=== PATIENT | male | born 1990 | race Caucasian/White ===

== ENCOUNTER → 2019-01-30 | Outpatient (CLI) | payer OTHER ==
[~2019-01-30] MED LIST: PROHANCE 279.3MG/ML 15ML VIAL (A9576) As Ordered ONE
--- NOTE | 2019-01-30 11:55 | REP ---
MRI brain without and with IV contrast: History: Migraine without aura. . Comparison study: No comparison imaging. Technique: Axial and sagittal imaging planes are utilized for T1 and T2-weighted scans. Sequences include spin-echo, fast spin echo, FLAIR, and diffusion weighted sequences. Gadolinium enhancement dose is 11 ml of intravenous ProHance. MRI findings: No bony calvarial lesion is seen. Craniocervical junction and upper cervical cord are normal in appearance. There is no MR evidence of significant paranasal sinus disease. No intraorbital abnormality is seen. The lateral, third, and fourth ventricles are normal in size and position. Adams-white differentiation pattern is intact above and below the tentorium. There is no evidence of intracranial hemorrhage. No mass, infarction, extra-axial fluid collection or midline shift is seen. No abnormal white matter lesion is seen. Postcontrast enhanced images show no abnormal intracranial contrast enhancement. Impression: Negative brain MRI study. Electronically Signed by Kostas Appiah MD 01/30/2019 11:46 A
== END ==
LOC: M RAD 10:17
PROVIDERS: ATTEND Physician Assistant
DX: G43.009 Migraine without aura, not intractable, without status migrainosus (principal)
CPT/HCPCS: 70553; A9576

== ENCOUNTER 2019-03-03 19:00 | Emergency (ER) | payer OTHER ==
[~2019-03-03] VITALS: Ht 172.7 cm; Wt 59.5 kg
[2019-03-03 19:01] VITALS: BP 133/78
[2019-03-03] MEDS ORDERED: HYDR50TA70 (19:07)
[2019-03-03] MEDS ORDERED: FLUO20CA19 (19:07)
== END 2019-03-03 20:19 | disposition home or self-care (01) ==
LOC: M ED 19:00
DX: J02.9 Acute pharyngitis, unspecified (principal); F41.9 Anxiety disorder, unspecified; Z90.89 Acquired absence of other organs; F17.210 Nicotine dependence, cigarettes, uncomplicated; Z88.1 Allergy status to other antibiotic agents; Z79.899 Other long term (current) drug therapy

== ENCOUNTER 2019-09-27 21:36 | Emergency (ER) | payer OTHER ==
[~2019-09-27] VITALS: Ht 172.7 cm; Wt 57.3 kg
[~2019-09-27 21:36] MED LIST changes: +FLUO20CA22; +HYDR50TA70; -PROHANCE 279.3MG/ML 15ML VIAL (A9576) As Ordered ONE
[2019-09-27] MEDS ORDERED: NS 1,000 ML IV ONE (22:00)
[2019-09-27] MEDS ORDERED: ISOVUE-370 76% 100ML VIAL As Ordered ONE (22:11)
[2019-09-27 22:13] LABS: BASO # 0.1 10^3/uL (0.0-0.2); BASO % 0.8 % (0.0-1.0); EOS # 0.2 10^3/uL (0.0-0.5); EOS % 2.3 % (0.0-3.0); HEMOGLOBIN 15.5 g/dl (13.5-17.5); LYMPH # 2.1 10^3/uL (1.5-5.0); LYMPH % 27.1 % (24.0-44.0); MEAN CORPUSCULAR HEMOGLOBIN 28.3 pg (27.0-33.0); MEAN CORPUSCULAR HGB CONC 33.7 g/dl (32.0-36.5); MEAN CORPUSCULAR VOLUME 83.9 fl (80.0-96.0); MONO # 0.4 10^3/uL (0.0-0.8); PLATELET COUNT, AUTOMATED 192 10^3/uL (150-450); RED BLOOD COUNT 5.48 10^6/uL (4.30-6.10); WHITE BLOOD COUNT 7.8 10^3/uL (4.0-10.0)
[2019-09-27 22:23] LABS: INR 1.13; PROTHROMBIN TIME 14.2 SECONDS (11.8-14.0)
[2019-09-27 22:24] LABS: PARTIAL THROMBOPLASTIN TIME 29.9 SECONDS (25.0-38.4)
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
[2019-09-27 22:47] LABS: ALBUMIN 4.8 GM/DL (3.2-5.2); ALT/SGPT 38 U/L (12-78); AMYLASE 43 U/L (25-115); BILIRUBIN,DIRECT 0.2 MG/DL (0.0-0.2); BILIRUBIN,TOTAL 0.7 MG/DL (0.2-1.0); CK-MB VALUE MASS 2.1 NG/ML (<3.6); CPK CREATINE PHOSPHOKINASE 217 U/L (39-308); ETHYL ALCOHOL (ETHANOL) 0.047 % (0.000-0.010); LIPASE 95 U/L (73-393); MB/CK RELATIVE INDEX 0.97 (< OR =4); TOTAL PROTEIN 7.8 GM/DL (6.4-8.2); TROPONIN I < 0.02 NG/ML (< 0.10)
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
[2019-09-27] MEDS ORDERED: POLYSPORIN TOPICAL OINTMENT 15GM TOP ONE (23:15)
[2019-09-27 23:45] VITALS: BP 127/75
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
== END 2019-09-28 00:01 | disposition home or self-care (01) ==
LOC: M ED 21:36 → EDBD 21:36 → M ED 09-28 00:01
DX: S09.90XA Unspecified injury of head, initial encounter (principal); S30.0XXA Contusion of lower back and pelvis, initial encounter; T14.8XXA Other injury of unspecified body region, initial encounter; F10.10 Alcohol abuse, uncomplicated; V03.12XA Pedestrian on skateboard injured in collision with car, pick-up truck or van in traffic accident, initial encounter; Y92.410 Unspecified street and highway as the place of occurrence of the external cause; Z88.1 Allergy status to other antibiotic agents; Z79.899 Other long term (current) drug therapy
CPT/HCPCS: 70450; 71045; 71260; 72125; 72170; 73090; 73130; 73552; 74177; 80047; 80076; 82150; 82550; 82553; 83605; 83690; 85025; 85610; 85730; 86850; 86900; 86901; 93041; 94760; 96360; 99285; G0480; Q9967

== ENCOUNTER 2022-11-09 09:35 | Emergency (ER) | payer OTHER ==
[~2022-11-09] VITALS: Ht 175.3 cm; Wt 59.8 kg
[2022-11-09 09:36] VITALS: BP 114/73; TEMP 98.3; O2SAT 99
== END 2022-11-09 10:34 | disposition left against medical advice (07) ==
LOC: M ED 09:35
DX: Z53.21 Procedure and treatment not carried out due to patient leaving prior to being seen by health care provider (principal)

== ENCOUNTER 2023-01-02 18:07 | Emergency (ER) | payer OTHER ==
[~2023-01-02] VITALS: Ht 175.3 cm; Wt 58.2 kg
[2023-01-02] MEDS ORDERED: NS 1,000 ML IV SCH (18:20)
[2023-01-02 18:34] VITALS: TEMP 98.2
[2023-01-02] MEDS ORDERED: OMEP-173 (18:58)
[2023-01-02] MEDS ORDERED: FLUT50SP17 (18:58)
[2023-01-02 19:12] LABS: BASO % 0.4 % (0.0-1.0); EOS # 0.1 10^3/uL (0.0-0.5); EOS % 1.1 % (0.0-3.0); HEMATOCRIT 43.9 % (42.0-52.0); HEMOGLOBIN 14.7 g/dl (13.5-17.5); LYMPH # 1.1 10^3/uL (1.5-5.0); MEAN CORPUSCULAR HEMOGLOBIN 28.8 pg (27.0-33.0); MEAN CORPUSCULAR HGB CONC 33.5 g/dl (32.0-36.5); MEAN CORPUSCULAR VOLUME 86.1 fl (80.0-96.0); MONO # 0.3 10^3/uL (0.0-0.8); MONO % 3.9 % (2.0-8.0); NEUTROPHILS # 6.7 10^3/uL (1.5-8.5); NEUTROPHILS % 81.4 % (36.0-66.0); PLATELET COUNT, AUTOMATED 161 10^3/uL (150-450); WHITE BLOOD COUNT 8.3 10^3/uL (4.0-10.0)
[2023-01-02 19:25] LABS: CK-MB VALUE MASS 3.1 NG/ML (<3.6)
[2023-01-02 19:26] LABS: ETHYL ALCOHOL (ETHANOL) < 0.003 % (0.000-0.010)
[2023-01-02 19:27] LABS: ACETAMINOPHEN LEVEL < 2.0 UG/ML (10.0-20.0); SALICYLATE LEVEL < 3.0 MG/DL (<30)
[2023-01-02 19:28] LABS: ALBUMIN 4.4 G/DL (3.2-5.2); ALKALINE PHOSPHATASE 68 U/L (46-116); ALT/SGPT 20 U/L (7.0-40); AST/SGOT 14 U/L (<34); BILIRUBIN,DIRECT 0.1 MG/DL (<0.4); BILIRUBIN,TOTAL 0.3 MG/DL (0.3-1.2); BLOOD UREA NITROGEN 16 MG/DL (9-23); CARBON DIOXIDE LEVEL 28 MMOL/L (20-31); CHLORIDE LEVEL 103 MMOL/L (98-107); CREATININE FOR GFR 0.99 MG/DL (0.70-1.30); GLOMERULAR FILTRATION RATE > 60.0 (>60); GLUCOSE, FASTING 105 MG/DL (60-100); POTASSIUM SERUM 4.2 MMOL/L (3.5-5.1); SODIUM LEVEL 139 MMOL/L (136-145); TOTAL PROTEIN 6.6 G/DL (5.7-8.2)
[2023-01-02 19:29] LABS: THYROID STIMULATING HORMONE 1.737 uIU/ML (0.55-4.78)
[2023-01-02 19:30] LABS: RSV AMPLIFICATION NEGATIVE (NEGATIVE)
[2023-01-02 19:31] LABS: CPK CREATINE PHOSPHOKINASE 272 U/L (46-171); MB/CK RELATIVE INDEX 1.13 (< OR =4)
[2023-01-02 20:03] LABS: AMPHETAMINES LEVEL URINE NEGATIVE (NEGATIVE); BARBITURATES URINE NEGATIVE (NEGATIVE); BENZODIAZEPINES URINE NEGATIVE (NEGATIVE); COCAINE METABOLITE URINE NEGATIVE (NEGATIVE); METHADONE URINE NEGATIVE (NEGATIVE); OPIATES URINE NEGATIVE (NEGATIVE); PHENCYCLIDINE URINE NEGATIVE (NEGATIVE)
[2023-01-02 20:05] LABS: CANNABINOIDS URINE POSITIVE (NEGATIVE)
[2023-01-02 20:45] VITALS: BP 115/73; O2SAT 99
== END 2023-01-02 21:03 | disposition home or self-care (01) ==
LOC: M ED 18:07 → EDBD 18:07 → M ED 21:03
DX: R07.9 Chest pain, unspecified (principal); F19.10 Other psychoactive substance abuse, uncomplicated; R00.2 Palpitations; I45.10 Unspecified right bundle-branch block; F41.9 Anxiety disorder, unspecified; F32.A Depression, unspecified; F17.200 Nicotine dependence, unspecified, uncomplicated; F12.10 Cannabis abuse, uncomplicated; F10.10 Alcohol abuse, uncomplicated; Z79.899 Other long term (current) drug therapy

== ENCOUNTER → 2023-02-01 | Outpatient (CLI) | payer OTHER ==
[~2023-02-01] MED LIST changes: +FLUT50SP17; +OMEP-173
== END ==
LOC: M CARPUL 09:18
PROVIDERS: ATTEND Physician Assistant
DX: R05.3 Chronic cough (principal); R06.00 Dyspnea, unspecified

== ENCOUNTER → 2023-05-10 | Outpatient (CLI) | payer OTHER ==
[~2023-05-10] MED LIST changes: -FLUT50SP17; +FLUTISP
[2023-05-10 12:29] LABS: BASO # 0.1 10^3/uL (0.0-0.2); BASO % 0.9 % (0.0-1.0); EOS # 0.2 10^3/uL (0.0-0.5); EOS % 2.9 % (0.0-3.0); HEMATOCRIT 49.5 % (42.0-52.0); HEMOGLOBIN 16.4 g/dl (13.5-17.5); LYMPH # 1.2 10^3/uL (1.5-5.0); LYMPH % 18.2 % (24.0-44.0); MEAN CORPUSCULAR HEMOGLOBIN 28.8 pg (27.0-33.0); MEAN CORPUSCULAR HGB CONC 33.1 g/dl (32.0-36.5); MEAN CORPUSCULAR VOLUME 86.8 fl (80.0-96.0); MONO # 0.4 10^3/uL (0.0-0.8); MONO % 5.3 % (2.0-8.0); NEUTROPHILS # 4.8 10^3/uL (1.5-8.5); NEUTROPHILS % 72.4 % (36.0-66.0); PLATELET COUNT, AUTOMATED 162 10^3/uL (150-450); WHITE BLOOD COUNT 6.6 10^3/uL (4.0-10.0)
[2023-05-10 12:44] LABS: ERYTHROCYTE SEDIMENTATION RATE 2 mm/hr (0-15)
[2023-05-10 12:45] LABS: C REACTIVE PROTEIN QUANTITATIV < 0.40 MG/DL (<1.0)
[2023-05-10 12:47] LABS: ALBUMIN 5.2 G/DL (3.2-5.2); ALKALINE PHOSPHATASE 86 U/L (46-116); ALT/SGPT 23 U/L (7.0-40); AST/SGOT 15 U/L (<34); BILIRUBIN,TOTAL 0.5 MG/DL (0.3-1.2); BLOOD UREA NITROGEN 10 MG/DL (9-23); CALCIUM LEVEL 9.3 MG/DL (8.5-10.1); CARBON DIOXIDE LEVEL 31 MMOL/L (20-31); CHLORIDE LEVEL 103 MMOL/L (98-107); CREATININE FOR GFR 0.85 MG/DL (0.70-1.30); GLOMERULAR FILTRATION RATE > 60.0 (>60); GLUCOSE, FASTING 96 MG/DL (60-100); IRON (FE) 56 UG/DL (65-175); PERCENT SATURATION 18.2 % (19.7-50.0); POTASSIUM SERUM 4.1 MMOL/L (3.5-5.1); RHEUMATOID FACTOR QUANT < 3.5 IU/ML (<14); SODIUM LEVEL 137 MMOL/L (136-145); TOTAL IRON BINDING CAPACITY 308 UG/DL (250-425); TOTAL PROTEIN 7.7 G/DL (5.7-8.2)
[2023-05-10 12:48] LABS: FERRITIN 91.1 NG/ML (10.5-307.3); TOTAL 25(OH) VITAMIN D 23.8 NG/ML (20.0-100.0); VITAMIN B12 LEVEL 743 PG/ML (211-911)
[2023-05-10 12:49] LABS: THYROID STIMULATING HORMONE 4.114 uIU/ML (0.55-4.78)
== END ==
LOC: M RAD 10:53
PROVIDERS: ATTEND Nurse Practitioner Family
DX: M54.9 Dorsalgia, unspecified (principal); M94.0 Chondrocostal junction syndrome [Tietze]; R20.2 Paresthesia of skin; Z82.61 Family history of arthritis

== ENCOUNTER → 2023-05-14 | Outpatient (CLI) | payer OTHER ==
[2023-05-14 15:15] LABS: BASO # 0.1 10^3/uL (0.0-0.2); BASO % 0.9 % (0.0-1.0); EOS % 0.4 % (0.0-3.0); HEMATOCRIT 45.5 % (42.0-52.0); HEMOGLOBIN 15.6 g/dl (13.5-17.5); LYMPH # 1.5 10^3/uL (1.5-5.0); LYMPH % 18.9 % (24.0-44.0); MEAN CORPUSCULAR HEMOGLOBIN 29.2 pg (27.0-33.0); MEAN CORPUSCULAR HGB CONC 34.3 g/dl (32.0-36.5); MEAN CORPUSCULAR VOLUME 85.2 fl (80.0-96.0); MONO # 0.4 10^3/uL (0.0-0.8); NEUTROPHILS % 74.7 % (36.0-66.0); PLATELET COUNT, AUTOMATED 177 10^3/uL (150-450); RED BLOOD COUNT 5.34 10^6/uL (4.30-6.10)
[2023-05-14 15:26] LABS: ERYTHROCYTE SEDIMENTATION RATE < 1 mm/hr (0-15)
[2023-05-14 15:46] LABS: C REACTIVE PROTEIN QUANTITATIV < 0.40 MG/DL (<1.0); RHEUMATOID FACTOR QUANT 4.3 IU/ML (<14); TOTAL IRON BINDING CAPACITY 278 UG/DL (250-425)
[2023-05-14 15:47] LABS: ALBUMIN 5.2 G/DL (3.2-5.2); ALKALINE PHOSPHATASE 70 U/L (46-116); ALT/SGPT 22 U/L (7.0-40); AST/SGOT 23 U/L (<34); BILIRUBIN,TOTAL 1.4 MG/DL (0.3-1.2); BLOOD UREA NITROGEN 14 MG/DL (9-23); CALCIUM LEVEL 9.2 MG/DL (8.5-10.1); CARBON DIOXIDE LEVEL 26 MMOL/L (20-31); CHLORIDE LEVEL 104 MMOL/L (98-107); CREATININE FOR GFR 1.03 MG/DL (0.70-1.30); GLOMERULAR FILTRATION RATE > 60.0 (>60); GLUCOSE, FASTING 101 MG/DL (60-100); IRON (FE) 72 UG/DL (65-175); PERCENT SATURATION 25.9 % (19.7-50.0); POTASSIUM SERUM 3.7 MMOL/L (3.5-5.1); SODIUM LEVEL 135 MMOL/L (136-145); TOTAL PROTEIN 7.5 G/DL (5.7-8.2)
[2023-05-14 15:48] LABS: FREE T4 1.31 NG/DL (0.89-1.76); THYROID STIMULATING HORMONE 2.304 uIU/ML (0.55-4.78)
[2023-05-14 15:49] LABS: FERRITIN 150.6 NG/ML (10.5-307.3); TOTAL 25(OH) VITAMIN D 27.1 NG/ML (20.0-100.0); VITAMIN B12 LEVEL 741 PG/ML (211-911)
== END ==
LOC: M LAB 14:37
PROVIDERS: ATTEND Nurse Practitioner Family
DX: R20.2 Paresthesia of skin (principal); Z82.61 Family history of arthritis; Z86.19 Personal history of other infectious and parasitic diseases; R53.83 Other fatigue

== ENCOUNTER 2023-05-28 11:16 | Emergency (ER) | payer OTHER ==
[~2023-05-28] VITALS: Ht 172.7 cm; Wt 59.1 kg
[2023-05-28] MEDS ORDERED: CYCL-707 PO (11:25)
[2023-05-28 12:34] LABS: BASO # 0.1 10^3/uL (0.0-0.2); BASO % 0.9 % (0.0-1.0); EOS % 0.6 % (0.0-3.0); HEMATOCRIT 49.3 % (42.0-52.0); HEMOGLOBIN 16.7 g/dl (13.5-17.5); LYMPH % 19.3 % (24.0-44.0); MEAN CORPUSCULAR HEMOGLOBIN 28.6 pg (27.0-33.0); MEAN CORPUSCULAR HGB CONC 33.9 g/dl (32.0-36.5); MEAN CORPUSCULAR VOLUME 84.6 fl (80.0-96.0); MONO # 0.3 10^3/uL (0.0-0.8); NEUTROPHILS # 3.9 10^3/uL (1.5-8.5); PLATELET COUNT, AUTOMATED 165 10^3/uL (150-450); RED BLOOD COUNT 5.83 10^6/uL (4.30-6.10); WHITE BLOOD COUNT 5.3 10^3/uL (4.0-10.0)
[2023-05-28 12:46] LABS: INR 1.11; PARTIAL THROMBOPLASTIN TIME 31.7 SECONDS (24.8-34.2)
[2023-05-28 12:59] LABS: BLOOD UREA NITROGEN 13 MG/DL (9-23); CALCIUM LEVEL 8.5 MG/DL (8.5-10.1); CARBON DIOXIDE LEVEL 26 MMOL/L (20-31); CHLORIDE LEVEL 103 MMOL/L (98-107); CK-MB VALUE MASS < 1.0 NG/ML (<3.6); CREATININE FOR GFR 0.84 MG/DL (0.70-1.30); GLOMERULAR FILTRATION RATE > 60.0 (>60); GLUCOSE, FASTING 109 MG/DL (60-100); POTASSIUM SERUM 4.1 MMOL/L (3.5-5.1); SODIUM LEVEL 135 MMOL/L (136-145)
[2023-05-28 13:01] LABS: CPK CREATINE PHOSPHOKINASE 104 U/L (46-171); MB/CK RELATIVE INDEX 0.96 (< OR =4)
[2023-05-28 16:40] VITALS: BP 139/80; TEMP 97.6; O2SAT 98
== END 2023-05-28 16:41 | disposition home or self-care (01) ==
LOC: M ED 11:16
DX: R07.89 Other chest pain (principal); F43.0 Acute stress reaction; I45.10 Unspecified right bundle-branch block; F41.9 Anxiety disorder, unspecified; K21.9 Gastro-esophageal reflux disease without esophagitis; I51.7 Cardiomegaly; Z88.1 Allergy status to other antibiotic agents; Z79.83 Long term (current) use of bisphosphonates; Z79.899 Other long term (current) drug therapy

== ENCOUNTER → 2023-06-24 | Outpatient (REF) | payer OTHER ==
[~2023-06-24] MED LIST changes: +CYCL-707 PO
== END ==
LOC: M LAB REF 13:03
PROVIDERS: ATTEND Internal Medicine Pulmonary Disease
DX: J45.40 Moderate persistent asthma, uncomplicated (principal)

== ENCOUNTER 2023-09-04 00:42 | Emergency (ER) | payer OTHER ==
[~2023-09-04] VITALS: Ht 177.8 cm; Wt 60.9 kg
[2023-09-04 00:43] VITALS: TEMP 97.4
[2023-09-04 04:46] VITALS: O2SAT 96
[2023-09-04 05:00] VITALS: BP 116/66
== END 2023-09-04 05:05 | disposition home or self-care (01) ==
LOC: M ED 00:42
DX: S86.819A Strain of other muscle(s) and tendon(s) at lower leg level, unspecified leg, initial encounter (principal); Z88.1 Allergy status to other antibiotic agents; Z79.891 Long term (current) use of opiate analgesic; Z79.899 Other long term (current) drug therapy; Y92.9 Unspecified place or not applicable; Y93.9 Activity, unspecified; Y99.9 Unspecified external cause status

== ENCOUNTER → 2023-10-29 | Outpatient (CLI) | payer OTHER ==
[~2023-10-29] MED LIST changes: +FLUO-365; -FLUO20CA22
== END ==
LOC: M RAD 09:22
PROVIDERS: ATTEND Nurse Practitioner Family
DX: R22.1 Localized swelling, mass and lump, neck (principal)

== ENCOUNTER 2024-05-18 19:58 | Emergency (ER) | payer OTHER ==
[~2024-05-18] VITALS: Ht 175.3 cm; Wt 59.6 kg
[2024-05-18 20:02] VITALS: BP 124/84; TEMP 98; O2SAT 99
[2024-05-18 20:43] LABS: BASO # 0.1 10^3/uL (0.0-0.2); EOS # 0.2 10^3/uL (0.0-0.5); EOS % 4.1 % (0.0-3.0); HEMATOCRIT 47.7 % (42.0-52.0); HEMOGLOBIN 16.4 g/dl (13.5-17.5); LYMPH # 1.2 10^3/uL (1.5-5.0); LYMPH % 23.2 % (24.0-44.0); MEAN CORPUSCULAR HEMOGLOBIN 28.7 pg (27.0-33.0); MEAN CORPUSCULAR HGB CONC 34.4 g/dl (32.0-36.5); MEAN CORPUSCULAR VOLUME 83.5 fl (80.0-96.0); MONO # 0.3 10^3/uL (0.0-0.8); MONO % 6.1 % (2.0-8.0); NEUTROPHILS # 3.4 10^3/uL (1.5-8.5); NEUTROPHILS % 65.4 % (36.0-66.0); PLATELET COUNT, AUTOMATED 150 10^3/uL (150-450); RED BLOOD COUNT 5.71 10^6/uL (4.30-6.10); WHITE BLOOD COUNT 5.1 10^3/uL (4.0-10.0)
[2024-05-18 21:10] LABS: CK-MB VALUE MASS < 1.0 NG/ML (<3.6)
[2024-05-18 21:11] LABS: BLOOD UREA NITROGEN 13 MG/DL (9-23); CALCIUM LEVEL 8.5 MG/DL (8.5-10.1); CARBON DIOXIDE LEVEL 30 MMOL/L (20-31); CHLORIDE LEVEL 105 MMOL/L (98-107); GLOMERULAR FILTRATION RATE > 60.0 (>60); GLUCOSE, FASTING 112 MG/DL (60-100); POTASSIUM SERUM 4.2 MMOL/L (3.5-5.1); SODIUM LEVEL 142 MMOL/L (136-145)
[2024-05-18 21:13] LABS: CPK CREATINE PHOSPHOKINASE 55 U/L (46-171); MB/CK RELATIVE INDEX 1.81 (< OR =4)
== END 2024-05-19 00:40 | disposition left against medical advice (07) ==
LOC: M ED 19:58
DX: Z53.21 Procedure and treatment not carried out due to patient leaving prior to being seen by health care provider (principal)

== ENCOUNTER → 2024-07-11 | Outpatient (REF) | payer OTHER | LOC: M LAB REF 14:54 | PROVIDERS: ATTEND Physician Assistant | DX: B34.9 Viral infection, unspecified (principal) ==